=== PATIENT | male | born 1990 | race Caucasian/White ===

== ENCOUNTER 2017-05-18 18:34 | Emergency (ER) | payer OTHER ==
[~2017-05-18] VITALS: Ht 185.4 cm; Wt 83.9 kg
[2017-05-18] MEDS ORDERED: NOHOMEMEDICATIONS (20:35)
[2017-05-18] MEDS ORDERED: HYDROCODONE-AP1 EAC6 PO (22:11)
== END 2017-05-18 22:22 | disposition home or self-care (01) ==
LOC: ER 18:34
DX: S52.125A Nondisplaced fracture of head of left radius, initial encounter for closed fracture (principal); M25.512 Pain in left shoulder; F17.220 Nicotine dependence, chewing tobacco, uncomplicated; W00.0XXA Fall on same level due to ice and snow, initial encounter; Y93.89 Activity, other specified; Y92.89 Other specified places as the place of occurrence of the external cause; Y99.8 Other external cause status